=== PATIENT | male | born 1975 | race Two or more races ===

== ENCOUNTER 2022-01-04 14:45 | Emergency (ER) | payer OTHER ==
[~2022-01-04] VITALS: Ht 182.9 cm; Wt 90.3 kg
[2022-01-04 14:59] VITALS: BP 138/81
[2022-01-04] MEDS ORDERED: NAPR500T31 PO (15:57)
[2022-01-04] MEDS ORDERED: CEPH500C PO (15:57)
[2022-01-04] MEDS ORDERED: TETANUS-DIPTH-ACEL PERTUSSIS 0.5ML SYR Tdap IM ONE (16:00)
== END 2022-01-04 16:00 | disposition home or self-care (01) ==
LOC: ER 14:45
DX: S61.411A Laceration without foreign body of right hand, initial encounter (principal); W22.8XXA Striking against or struck by other objects, initial encounter; Y93.89 Activity, other specified; Y92.89 Other specified places as the place of occurrence of the external cause; Y99.8 Other external cause status
CPT/HCPCS: 12001; 90471; 90715